=== PATIENT | female | born 1930 | race Two or more races ===

== ENCOUNTER 2020-04-04 14:12 | Emergency (ER) | payer OTHER ==
[~2020-04-04] VITALS: Ht 152.4 cm; Wt 49.9 kg
== END 2020-04-06 11:30 | disposition home or self-care (01) ==
LOC: ER 14:12
DX: M50.30 Other cervical disc degeneration, unspecified cervical region (principal); M51.36 Other intervertebral disc degeneration, lumbar region; M51.34 Other intervertebral disc degeneration, thoracic region; Z20.828 Contact with and (suspected) exposure to other viral communicable diseases